=== PATIENT | female | born 1960 | race Caucasian/White ===

== ENCOUNTER → 2016-08-14 13:12 | Outpatient (CLI) | payer BC, MEDICAID ==
[2014-03-18 13:41] VITALS: BMI 27.8
[~2016-08-14 13:12] MED LIST: CARBATROL100 MG PO; DILANTIN50 MG PO; ELAVIL25 MG PO; HYDROCODON-ACE1 EAC7 PO
== END | disposition home or self-care (01) ==
LOC: D.CT 13:12
DX: H51.9 Unspecified disorder of binocular movement (principal); R51 Headache

== ENCOUNTER → 2017-01-08 15:15 | Outpatient (CLI) | payer BC, MEDICAID ==
[2014-03-18 13:41] VITALS: BMI 27.8
[2017-01-08 16:15] LABS: PHENYTOIN (DILANTIN) 24.3 ug/mL (10.0-20.0)
== END | disposition home or self-care (01) ==
LOC: D.LAB 14:45
DX: G40.219 Localization-related (focal) (partial) symptomatic epilepsy and epileptic syndromes with complex partial seizures, intractable, without status epilepticus (principal)

== ENCOUNTER → 2017-01-15 12:30 | Outpatient (CLI) | payer BC, MEDICAID ==
[2014-03-18 13:41] VITALS: BMI 27.8
== END | disposition home or self-care (01) ==
LOC: D.LAB 08:15
DX: G40.219 Localization-related (focal) (partial) symptomatic epilepsy and epileptic syndromes with complex partial seizures, intractable, without status epilepticus (principal)

== ENCOUNTER → 2017-01-23 14:09 | Outpatient (CLI) | payer BC, MEDICAID ==
[2014-03-18 13:41] VITALS: BMI 27.8
== END | disposition home or self-care (01) ==
LOC: D.LAB 01-22 08:00
DX: G40.219 Localization-related (focal) (partial) symptomatic epilepsy and epileptic syndromes with complex partial seizures, intractable, without status epilepticus (principal)

== ENCOUNTER → 2017-01-29 14:25 | Outpatient (CLI) | payer BC, MEDICAID ==
[2014-03-18 13:41] VITALS: BMI 27.8
== END | disposition home or self-care (01) ==
LOC: D.LAB 14:24
DX: G40.219 Localization-related (focal) (partial) symptomatic epilepsy and epileptic syndromes with complex partial seizures, intractable, without status epilepticus (principal)

== ENCOUNTER → 2017-07-19 13:49 | Outpatient (CLI) | payer BC, MEDICAID ==
[2014-03-18 13:41] VITALS: BMI 27.8
[2017-07-19 15:31] LABS: BASOPHILS 0.5 % (0-2); EOSINOPHILS 3.8 % (0-7); HEMATOCRIT 39.1 % (36.0-48.0); HEMOGLOBIN 12.7 g/dL (12-16); LYMPHOCYTES 37.1 % (15-50); MCH 30.7 pg (26.0-34.0); MCHC 32.5 g/dL (31.0-37.0); MCV 94.4 fL (80.0-100.0); MEAN PLATELET VOLUME 9.6 fL (7.4-10.4); MONOCYTES 7.4 % (2-11); NEUTROPHILS 51.2 % (40-80); RBC 4.14 10x6/uL (4.00-5.40); RDW 13.4 % (11.5-14.5); WBC 4.2 10x3/uL (4.8-10.8)
[2017-07-19 15:32] LABS: PLATELET COUNT 127 10x3/uL (130-400)
[2017-07-19 16:00] LABS: ANION GAP 11.1 mmol/L (8-16); BILIRUBIN - TOTAL 0.3 mg/dL (0.2-1.3); CALCIUM 8.7 mg/dL (8.5-10.1); CARBAMAZEPINE (TEGRETOL) 3.8 ug/mL (4.0-12.0); CARBON DIOXIDE 29.1 mmol/L (21.0-32.0); PHENYTOIN (DILANTIN) 27.2 ug/mL (10.0-20.0); POTASSIUM - SERUM 5.2 mmol/L (3.5-5.1); PROTEIN - SERUM 6.7 g/dL (6.4-8.2)
== END | disposition home or self-care (01) ==
LOC: D.LAB 13:49
DX: G40.219 Localization-related (focal) (partial) symptomatic epilepsy and epileptic syndromes with complex partial seizures, intractable, without status epilepticus (principal)

== ENCOUNTER 2018-01-22 19:10 | Observation (INO) | payer BC, MEDICAID ==
[~2018-01-22] VITALS: Ht 172.7 cm; Wt 81.8 kg
[2018-01-22] MEDS ORDERED: COZAAR50 MG PO (19:53)
[2018-01-22] MEDS ORDERED: ONFI10 MG PO (19:53)
[2018-01-22 21:10] LABS: BASOPHILS 0.4 % (0-2); EOSINOPHILS 2.2 % (0-7); HEMATOCRIT 41.8 % (36.0-48.0); HEMOGLOBIN 13.9 g/dL (12-16); IMMATURE GRANULOCYTES 0.2 % (0-5); LYMPHOCYTES 35.7 % (15-50); MCH 30.6 pg (26.0-34.0); MCHC 33.3 g/dL (31.0-37.0); MCV 92.1 fL (80.0-100.0); MEAN PLATELET VOLUME 9.8 fL (7.4-10.4); MONOCYTES 9.4 % (2-11); NEUTROPHILS 52.1 % (40-80); PLATELET COUNT 136 10x3/uL (130-400); RBC 4.54 10x6/uL (4.00-5.40); RDW 13.2 % (11.5-14.5); WBC 5.4 10x3/uL (4.8-10.8)
[2018-01-22 21:23] LABS: ALBUMIN 4.2 g/dL (3.4-5.0); ANION GAP 12.3 mmol/L (8-16); BILIRUBIN - TOTAL 0.25 mg/dL (0.2-1.3); CALCIUM 9.2 mg/dL (8.5-10.1); CARBON DIOXIDE 30.8 mmol/L (21.0-32.0); POTASSIUM - SERUM 4.1 mmol/L (3.5-5.1); PROTEIN - SERUM 7.7 g/dL (6.4-8.2)
[2018-01-22 21:48] LABS: PHENYTOIN (DILANTIN) 41.1 ug/mL (10.0-20.0)
[2018-01-22 22:53] LABS: APPEARANCE HAZY (CLEAR); BACTERIA MANY /hpf (NONE SEEN); BILIRUBIN NEGATIVE (NEGATIVE); COLOR YELLOW (YELLOW); EPITHELIAL CELLS 0-5 /hpf (0-5); GLUCOSE NEGATIVE (NEGATIVE); KETONE NEGATIVE (NEGATIVE); NITRITE POSITIVE (NEGATIVE); PROTEIN NEGATIVE (NEGATIVE); RED CELLS - URINE OCC /hpf (0-5); UROBILINOGEN NORMAL (NORMAL)
[2018-01-22 22:59] LABS: UDS - AMPHET NEGATIVE QUAL (NEGATIVE); UDS - BARB NEGATIVE QUAL (NEGATIVE); UDS - BENZO NEGATIVE QUAL (NEGATIVE); UDS - COCAINE NEGATIVE QUAL (NEGATIVE); UDS - OPIATE NEGATIVE QUAL (NEGATIVE); UDS - PCP NEGATIVE QUAL (NEGATIVE); UDS - THC NEGATIVE QUAL (NEGATIVE)
[2018-01-22 23:12] VITALS: BP 150/76
[2018-01-23 02:12] VITALS: BP 153/75; BMI 27.4
[2018-01-23 04:00] VITALS: BP 147/71
[2018-01-23 05:02] LABS: BASOPHILS 0.6 % (0-2); EOSINOPHILS 1.3 % (0-7); HEMATOCRIT 37.8 % (36.0-48.0); HEMOGLOBIN 12.3 g/dL (12-16); IMMATURE GRANULOCYTES 0.2 % (0-5); LYMPHOCYTES 38.8 % (15-50); MCH 30.2 pg (26.0-34.0); MCHC 32.5 g/dL (31.0-37.0); MCV 92.9 fL (80.0-100.0); MONOCYTES 10.6 % (2-11); NEUTROPHILS 48.5 % (40-80); PLATELET COUNT 130 10x3/uL (130-400); RBC 4.07 10x6/uL (4.00-5.40); RDW 13.2 % (11.5-14.5); WBC 5.3 10x3/uL (4.8-10.8)
[2018-01-23 05:31] LABS: CALCIUM 8.9 mg/dL (8.5-10.1); CREATININE - SERUM 0.9 mg/dL (0.6-1.3)
[2018-01-23 08:17] VITALS: BP 136/70
[2018-01-23 12:57] VITALS: BP 150/65
[2018-01-23 13:17] VITALS: Ht 172.7 cm; Wt 81.8 kg
[2018-01-23] MEDS ORDERED: LEVAQUIN250 MG PO (13:18)
== END 2018-01-23 15:14 | disposition home or self-care (01) ==
LOC: D.ER 19:10 → D.MS 23:53 → OBSVTIME 23:53 → D.MS 01-23 15:14
PROVIDERS: Family Medicine
DX: G92 Toxic encephalopathy (principal); T42.0X5A Adverse effect of hydantoin derivatives, initial encounter; N39.0 Urinary tract infection, site not specified; I10 Essential (primary) hypertension; G40.909 Epilepsy, unspecified, not intractable, without status epilepticus

== ENCOUNTER → 2018-02-05 12:13 | Outpatient (CLI) | payer BC, MEDICAID ==
[2018-01-23 13:17] VITALS: BMI 27.4
[~2018-02-05 12:13] MED LIST changes: +COZAAR50 MG PO; +LEVAQUIN250 MG PO; +ONFI10 MG PO
[2018-02-05 13:26] LABS: ALBUMIN 4.3 g/dL (3.4-5.0); ANION GAP 12.8 mmol/L (8-16); BILIRUBIN - TOTAL 0.29 mg/dL (0.2-1.3); CALCIUM 9.3 mg/dL (8.5-10.1); CARBAMAZEPINE (TEGRETOL) 4.9 ug/mL (4.0-12.0); CARBON DIOXIDE 28.3 mmol/L (21.0-32.0); CREATININE - SERUM 1.1 mg/dL (0.6-1.3); PHENYTOIN (DILANTIN) 21.3 ug/mL (10.0-20.0); POTASSIUM - SERUM 4.1 mmol/L (3.5-5.1); PROTEIN - SERUM 7.4 g/dL (6.4-8.2)
== END | disposition home or self-care (01) ==
LOC: D.LAB 12:13
PROVIDERS: Family Medicine
DX: G40.909 Epilepsy, unspecified, not intractable, without status epilepticus (principal)

== ENCOUNTER → 2018-02-08 12:36 | Outpatient (CLI) | payer BC, MEDICAID ==
[2018-01-23 13:17] VITALS: BMI 27.4
[2018-02-08 13:10] LABS: CARBAMAZEPINE (TEGRETOL) 7.1 ug/mL (4.0-12.0)
== END | disposition home or self-care (01) ==
LOC: D.LAB 12:36
PROVIDERS: Family Medicine
DX: G40.909 Epilepsy, unspecified, not intractable, without status epilepticus (principal)

== ENCOUNTER → 2018-03-21 12:58 | Outpatient (CLI) | payer BC, MEDICAID ==
[2018-01-23 13:17] VITALS: BMI 27.4
[2018-03-21 13:58] LABS: CARBAMAZEPINE (TEGRETOL) 8.7 ug/mL (4.0-12.0); PHENYTOIN (DILANTIN) 10.5 ug/mL (10.0-20.0)
== END | disposition home or self-care (01) ==
LOC: D.LAB 12:58
PROVIDERS: Family Medicine
DX: G40.909 Epilepsy, unspecified, not intractable, without status epilepticus (principal)

== ENCOUNTER → 2018-04-11 09:12 | Outpatient (CLI) | payer BC, MEDICAID ==
[2018-01-23 13:17] VITALS: BMI 27.4
[2018-04-11 10:12] LABS: PHENYTOIN (DILANTIN) 12.7 ug/mL (10.0-20.0)
== END | disposition home or self-care (01) ==
LOC: D.LAB 09:12
PROVIDERS: Family Medicine
DX: G40.909 Epilepsy, unspecified, not intractable, without status epilepticus (principal)

== ENCOUNTER 2018-08-09 19:21 | Emergency (ER) | payer BC, MEDICAID ==
[~2018-08-09] VITALS: Ht 172.7 cm; Wt 86.4 kg
[2018-08-09 19:40] VITALS: Ht 172.7 cm; Wt 86.4 kg
[2018-08-09] MEDS ORDERED: COZAAR50 MG PO (19:43)
[2018-08-09 20:13] LABS: BASOPHILS 0.6 % (0-2); EOSINOPHILS 1.8 % (0-7); HEMATOCRIT 38.8 % (36.0-48.0); HEMOGLOBIN 12.7 g/dL (12-16); IMMATURE GRANULOCYTES 0.1 % (0-5); LYMPHOCYTES 30.9 % (15-50); MCH 30.3 pg (26.0-34.0); MCHC 32.7 g/dL (31.0-37.0); MCV 92.6 fL (80.0-100.0); MEAN PLATELET VOLUME 9.6 fL (7.4-10.4); NEUTROPHILS 60.6 % (40-80); RBC 4.19 10x6/uL (4.00-5.40); RDW 13.8 % (11.5-14.5); WBC 7.2 10x3/uL (4.8-10.8)
[2018-08-09 20:32] LABS: ALBUMIN 3.9 g/dL (3.4-5.0); ANION GAP 15.1 mmol/L (8-16); BILIRUBIN - TOTAL 0.54 mg/dL (0.2-1.3); CALCIUM 8.9 mg/dL (8.5-10.1); CREATININE - SERUM 1.1 mg/dL (0.6-1.3); POTASSIUM - SERUM 4.1 mmol/L (3.5-5.1); PROTEIN - SERUM 7.6 g/dL (6.4-8.2)
[2018-08-09 20:33] LABS: CARBAMAZEPINE (TEGRETOL) 8.6 ug/mL (4.0-12.0); PHENYTOIN (DILANTIN) 9.4 ug/mL (10.0-20.0)
[2018-08-09 20:34] LABS: PLATELET COUNT 243 10x3/uL (130-400)
[2018-08-09 22:50] VITALS: BP 137/89
== END 2018-08-09 22:50 | disposition home or self-care (01) ==
LOC: D.ER 19:21
PROVIDERS: Family Medicine
DX: G40.909 Epilepsy, unspecified, not intractable, without status epilepticus (principal); I10 Essential (primary) hypertension

== ENCOUNTER → 2018-08-13 13:50 | Outpatient (CLI) | payer BC, MEDICAID ==
[2018-08-09 19:40] VITALS: BMI 28.9
[2018-08-13 14:56] LABS: CARBAMAZEPINE (TEGRETOL) 5.7 ug/mL (4.0-12.0); PHENYTOIN (DILANTIN) 17.2 ug/mL (10.0-20.0)
== END | disposition home or self-care (01) ==
LOC: D.LAB 13:50
PROVIDERS: Family Medicine
DX: G40.909 Epilepsy, unspecified, not intractable, without status epilepticus (principal)

== ENCOUNTER → 2019-02-26 12:09 | Outpatient (CLI) | payer BC, MEDICAID ==
[2018-08-09 19:40] VITALS: BMI 28.9
[~2019-02-26 12:09] MED LIST changes: +DIAZEPAM RECTAL GEL
== END | disposition home or self-care (01) ==
LOC: D.LAB 12:08
PROVIDERS: ATTEND Family Medicine
DX: G40.909 Epilepsy, unspecified, not intractable, without status epilepticus (principal)

== ENCOUNTER 2019-05-05 19:40 | Emergency (ER) | payer BC, MEDICAID ==
[~2019-05-05] VITALS: Ht 172.7 cm; Wt 73.6 kg
[~2019-05-05 19:40] MED LIST changes: -DIAZEPAM RECTAL GEL
[2019-05-05 19:46] VITALS: Ht 172.7 cm; Wt 73.6 kg
[2019-05-05] MEDS ORDERED: DIAZEPAM RECTAL GEL (19:51)
[2019-05-05 20:07] LABS: BASOPHILS 0.2 % (0-2); EOSINOPHILS 1.9 % (0-7); HEMOGLOBIN 11.9 g/dL (12-16); LYMPHOCYTES 37.4 % (15-50); MCHC 32.2 g/dL (31.0-37.0); MCV 93.2 fL (80.0-100.0); MONOCYTES 8.3 % (2-11); NEUTROPHILS 52.2 % (40-80); RBC 3.97 10x6/uL (4.00-5.40); RDW 13.2 % (11.5-14.5); WBC 5.4 10x3/uL (4.8-10.8)
[2019-05-05 20:09] LABS: PLATELET COUNT 147 10x3/uL (130-400)
[2019-05-05 20:23] LABS: BILIRUBIN - TOTAL 0.47 mg/dL (0.2-1.3); CALCIUM 8.7 mg/dL (8.5-10.1); CARBON DIOXIDE 28.6 mmol/L (21.0-32.0); POTASSIUM - SERUM 3.6 mmol/L (3.5-5.1); PROTEIN - SERUM 6.4 g/dL (6.4-8.2)
[2019-05-05 20:24] LABS: CARBAMAZEPINE (TEGRETOL) 3.7 ug/mL (4.0-12.0); MAGNESIUM - SERUM 1.9 mg/dL (1.8-2.4)
[2019-05-05 21:38] LABS: APPEARANCE HAZY (CLEAR); BILIRUBIN NEGATIVE (NEGATIVE); COLOR YELLOW (YELLOW); GLUCOSE NEGATIVE (NEGATIVE); KETONE NEGATIVE (NEGATIVE); NITRITE POSITIVE (NEGATIVE); PROTEIN NEGATIVE (NEGATIVE); UROBILINOGEN NORMAL (NORMAL)
[2019-05-05 21:39] LABS: RED CELLS - URINE 0-5 /hpf (0-5)
[2019-05-05 21:40] LABS: BACTERIA MANY /hpf (NEGATIVE); EPITHELIAL CELLS 0-5 /hpf (0-5)
[2019-05-05 21:44] LABS: UDS - AMPHET NEGATIVE QUAL (NEGATIVE); UDS - BARB NEGATIVE QUAL (NEGATIVE); UDS - BENZO POSITIVE QUAL (NEGATIVE); UDS - COCAINE NEGATIVE QUAL (NEGATIVE); UDS - OPIATE POSITIVE QUAL (NEGATIVE); UDS - PCP NEGATIVE QUAL (NEGATIVE); UDS - THC NEGATIVE QUAL (NEGATIVE)
[2019-05-05 23:44] VITALS: BP 137/72
[2019-05-15 19:08] LABS: AEROBE ID Final report (()); RESULT 1 Klebsiella ozaenae (())
== END 2019-05-05 23:46 | disposition other institution (70) ==
LOC: D.ER 19:40
PROVIDERS: Family Medicine; Nurse Practitioner Family
DX: G40.909 Epilepsy, unspecified, not intractable, without status epilepticus (principal); I10 Essential (primary) hypertension

== ENCOUNTER → 2019-06-30 09:57 | Outpatient (CLI) | payer BC, MEDICAID ==
[2019-05-05 19:46] VITALS: BMI 24.6
[~2019-06-30 09:57] MED LIST changes: +DIAZEPAM RECTAL GEL
[2019-06-30 11:20] LABS: CARBAMAZEPINE (TEGRETOL) 10.9 ug/mL (4.0-12.0); PHENYTOIN (DILANTIN) 14.7 ug/mL (10.0-20.0)
== END | disposition home or self-care (01) ==
LOC: D.LAB 09:57
PROVIDERS: ATTEND Family Medicine
DX: G40.909 Epilepsy, unspecified, not intractable, without status epilepticus (principal)

== ENCOUNTER → 2019-08-08 10:53 | Outpatient (CLI) | payer BC, MEDICAID ==
[2019-05-05 19:46] VITALS: BMI 24.6
[2019-08-08 12:00] LABS: CARBAMAZEPINE (TEGRETOL) 6.1 ug/mL (4.0-12.0); PHENYTOIN (DILANTIN) 9.5 ug/mL (10.0-20.0)
== END | disposition home or self-care (01) ==
LOC: D.MAMMO 10:30 → D.LAB 10:53
PROVIDERS: ATTEND Nurse Practitioner Family
DX: Z12.31 Encounter for screening mammogram for malignant neoplasm of breast (principal); G40.909 Epilepsy, unspecified, not intractable, without status epilepticus

== ENCOUNTER → 2020-01-21 10:22 | Outpatient (CLI) | payer BC, MEDICAID ==
[2019-05-05 19:46] VITALS: BMI 24.6
[2020-01-21 11:00] LABS: CARBAMAZEPINE (TEGRETOL) 6.2 ug/mL (4.0-12.0); PHENYTOIN (DILANTIN) 14.2 ug/mL (10.0-20.0)
== END | disposition home or self-care (01) ==
LOC: D.LAB 10:22
PROVIDERS: ATTEND Nurse Practitioner Family
DX: G40.909 Epilepsy, unspecified, not intractable, without status epilepticus (principal)

== ENCOUNTER → 2021-01-05 15:51 | Outpatient (CLI) | payer BC, MEDICAID ==
[2020-07-26 10:59] VITALS: BMI 23.3
[~2021-01-05 15:51] MED LIST changes: +ASCORBIC ACID500 MG PO; +GALZIN50 MG PO; +TEGRETOL 100 M100 MG PO; +VITAMIN D50000 UNI1 PO
[2021-01-05 17:01] LABS: CARBAMAZEPINE (TEGRETOL) 5.9 ug/mL (4.0-12.0); PHENYTOIN (DILANTIN) 19.1 ug/mL (10.0-20.0)
== END | disposition home or self-care (01) ==
LOC: D.LAB 15:51
PROVIDERS: ATTEND Family Medicine
DX: G40.909 Epilepsy, unspecified, not intractable, without status epilepticus (principal)